=== PATIENT | female | born 1970 | race American Indian/Alaskan Native ===

== ENCOUNTER 2023-04-05 21:00 | Emergency (ER) | payer BC, OTHER ==
[2023-04-05 21:19] VITALS: BP 126/84; PULSE 75; RESP 16; TEMP 98; BMI 30.6
== END 2023-04-05 21:24 | disposition home or self-care (01) ==
LOC: FER 21:00
DX: H11.32 Conjunctival hemorrhage, left eye (principal)
CPT/HCPCS: 99282-25